=== PATIENT | male | born 1970 | race African-American/Black ===

== ENCOUNTER 2018-03-24 04:14 | Emergency (ER) | payer BC ==
[2018-03-24 05:04] LABS: ADD MAN DIFF? NO
[2018-03-24 05:12] LABS: WHITE BLOOD COUNT 7.7 10^3/ul (4.8-10.8)
[2018-03-24 05:12] LABS: BASOPHILS % 0.3 % (0.0-2.0); EOSINOPHILS # 0.1 10^3/ul (0.0-0.5); EOSINOPHILS % 1.4 % (0.0-7.0); HEMATOCRIT 42.6 % (42.0-52.0); HEMOGLOBIN 14.6 g/dl (14.0-18.0); LYMPHOCYTES # 4.8 10^3/ul (0.8-2.9); MEAN CORPUSCULAR HEMOGLOBIN 29.9 pg (29.0-33.0); MEAN CORPUSCULAR HGB CONC 34.3 g/dl (32.0-37.0); MEAN CORPUSCULAR VOLUME 87.3 fl (82.0-101.0); MEAN PLATELET VOLUME 11.8 fl (7.4-10.4); MONOCYTE # 0.7 10^3/ul (0.3-0.9); MONOCYTES % 8.8 % (0.0-11.0); NEUTROPHIL # 2.1 10^3/ul (1.6-7.5); NEUTROPHILS % 27.2 % (39.0-77.0); PLATELET COUNT 200 10^3/UL (140-415); RED BLOOD COUNT 4.88 10^6/ul (4.70-6.10); RED CELL DISTRIBUTION WIDTH 13.2 % (11.5-14.5)
[2018-03-24] MEDS: morphine 4 MG/ML VIAL IV (05:20)
[2018-03-24] MEDS: ONDANSETRON 4 MG INJ IV (05:20)
[2018-03-24] MEDS: SOD CHLORIDE 0.9% 500 ML IV (05:22)
[2018-03-24 05:31] LABS: ALANINE AMINOTRANSFERASE 57 IU/L (13-69); ALBUMIN 4.5 g/dl (3.3-4.9); ALBUMIN/GLOBULIN RATIO 1.18; ALKALINE PHOSPHATASE 87 IU/L (42-121); ANION GAP 16 (8-16); ASPARTATE AMINO TRANSFERASE 33 IU/L (15-46); BILIRUBIN,INDIRECT 0.6 mg/dl (0-1.1); BILIRUBIN,TOTAL 0.6 mg/dl (0.2-1.3); BLOOD UREA NITROGEN 21 mg/dl (7-20); CALCIUM 9.2 mg/dl (8.4-10.2); CARBON DIOXIDE 28 mmol/L (21-31); CHLORIDE 104 mmol/L (97-110); CREATININE 1.39 mg/dl (0.61-1.24); GLUCOSE 137 mg/dl (70-220); LIPASE 465 U/L (23-300); POTASSIUM 4.1 mmol/L (3.5-5.1); SODIUM 144 mmol/L (135-144); TOTAL PROTEIN 8.3 g/dl (6.1-8.1)
[2018-03-24 05:45] LABS: TROPONIN-I < 0.012 ng/ml (0.00-0.12)
[2018-03-24] MEDS: LIDOCAINE/MYLANTA 40 ML BTL PO (06:09)
[2018-03-24] MEDS: FAMOTIDINE 20 MG TAB PO (06:09)
[2018-03-24] MEDS: BELLADONNA/PHENOBARBITAL TAB PO (06:09)
== END 2018-03-24 06:28 | disposition home or self-care (01) ==
LOC: E/R 04:14
DX: I10 Essential (primary) hypertension (principal); R40.2252 Coma scale, best verbal response, oriented, at arrival to emergency department; R40.2142 Coma scale, eyes open, spontaneous, at arrival to emergency department; R40.2362 Coma scale, best motor response, obeys commands, at arrival to emergency department
CPT/HCPCS: 36415; 71045; 80053; 83690; 84484; 85025; 93005; 96374; 96375; 99285-25